=== PATIENT | male | born 1985 | race Caucasian/White ===

== ENCOUNTER 2021-09-10 08:38 | Emergency (ER) | payer OTHER, SELFPAY ==
--- NOTE | 2021-09-10 08:45 | ED.URI ---
HPI - URI/Sore Throat General Chief Complaint: Upper Respiratory Infection Stated Complaint: Fever,Congestion Time Seen by Provider: 09/10/21 08:45 Source: patient Mode of arrival: ambulatory Limitations: no limitations History of Present Illness HPI Narrative: Mr. Eaton is a 36-year-old male patient presenting to the clinic today with complaints of fever, sore throat, body aches, head congestion, and coughing up green phlegm x3 days. He reports that the fever just started yesterday and was 102 ?F. No known exposure to anyone with COVID, flu, or strep. Took an at home COVID test 1 to 2 days ago and it was negative. MD elicited complaint: fever and nasal congestion Related Data Home Medications Medication Instructions Recorded Confirmed No Home Medications 09/10/21 09/10/21 Allergies Allergy/AdvReac Type Severity Reaction Status Date / Time No Known Allergies Allergy Verified 09/10/21 09:01 Review of Systems Review of Systems: Pertinent positives per HPI. Patient denies any rash, headache, visual changes, dizziness, shortness of breath, chest pain, palpitations, nausea, vomiting, diarrhea, constipation, abdominal pain, or any urinary issues. PMFSH Comments At the time of my signature, I reviewed and agree with the nursing past medical, surgical, social, and family history. There is no relevant family history pertinent to the patient complaint. Exam Narrative: General: Well-developed, obese, in no apparent distress Head: Normocephalic, atraumatic Eyes: Pupils equally round and reactive to light bilaterally, EOM intact, sclera and conjunctive clear, no discharge, lids normal Ears: TMs intact and clear, ear canals clear, no drainage, grossly hearing normal. Nose: Nares patent, clear nasal discharge, mild inflammation, no sinus tenderness. Mouth: Oropharynx without lesions or masses, good dentition, MMM. Oropharynx red with mild tonsillar edema with 1 small area of white exudate to the left tonsil. Neck: Supple, trachea midline, no enlargement of anterior or posterior cervical nodes, no thyroid masses or goiter palpable. Cardio: Regular rate and rhythm, s1 and s2 normal, no murmur appreciated. Resp: Clear to auscultation bilaterally anteriorly and posteriorly, no rhonchi, rales, wheezing or rubs Course Course Emergency Course: Portions of this record may have been created with voice recognition software. Level of Care: Express Care Visit Vital Signs Vital signs: Vital signs reviewed MDM - URI/Sore Throat MDM Narrative Medical decision making narrative: At the time of assessment patient is resting comfortably on the exam table. He reports fever, chills, body aches, sore throat, and head congestion x3 days. No known exposure to anyone with COVID, strep, or flu. Influenza, COVID, strep testing completed in the clinic. All these tests were negative. I suspect viral syndrome/upper respiratory infection. Supportive measures were discussed with patient and he voiced understanding of discharge instructions Differential Diagnosis Differential diagnosis: Likely upper respiratory infection, croup, sinusitis, viral infection, bronchitis, influenza, pharyngitis and other Discharge Plan Discharge Clinical Impression: Viral syndrome, URI (upper respiratory infection) Patient Disposition: Home, Self-Care Condition: Stable Instructions: Upper Respiratory Infection (ED), Viral Syndrome (ED) Additional Instructions: COVID, strep, and flu testing negative in the clinic. Will send strep for culture Increase fluids and stay well hydrated Tylenol/motrin for pain/fever Flonase and OTC antihistamines as directed Vicks vapor rub to open sinuses Sinus rinses for congestion May use Coricidin HBP to alleviate flu-like symptoms Cepacol spray, cough drops, throat lozenges, warm tea with honey/lemon, gargle salt water to soothe throat BRAT diet for diarrhea Clear liquids x 24 hours then advance as jermain
[2021-09-10 08:53] VITALS: BP 155/104; PULSE 80; RESP 18; TEMP 36.9; O2SAT 98
== END 2021-09-10 09:19 | disposition home or self-care (01) ==
PROVIDERS: Emergency Provider Nurse Practitioner Family
DX: B34.9 Viral infection, unspecified (principal); J06.9 Acute upper respiratory infection, unspecified; Z20.822 Contact with and (suspected) exposure to COVID-19
CPT/HCPCS: 87081; 87426; 87804; 87880; 99213; C9803; G0463